=== PATIENT | male | born 1985 | race Hispanic/Latino ===

== ENCOUNTER 2020-09-26 11:58 | Emergency (ER) | payer OTHER ==
[~2020-09-26] VITALS: Ht 172.7 cm; Wt 71.1 kg
[2020-09-26 12:54] LABS: BASO % 0.5 % (0.0-1.0); EOS # 0.1 10^3/uL (0.0-0.5); EOS % 0.6 % (0.0-3.0); HEMOGLOBIN 16.1 g/dl (13.5-17.5); LYMPH # 2.4 10^3/uL (1.5-5.0); LYMPH % 27.3 % (24.0-44.0); MEAN CORPUSCULAR VOLUME 88.6 fl (80.0-96.0); MONO # 0.5 10^3/uL (0.0-0.8); MONO % 5.9 % (2.0-8.0); NEUTROPHILS # 5.7 10^3/uL (1.5-8.5); NEUTROPHILS % 65.5 % (36.0-66.0); PLATELET COUNT, AUTOMATED 255 10^3/uL (150-450); RED BLOOD COUNT 5.19 10^6/uL (4.30-6.10); WHITE BLOOD COUNT 8.6 10^3/uL (4.0-10.0)
[2020-09-26 13:18] LABS: ALBUMIN 4.6 GM/DL (3.2-5.2); BILIRUBIN,DIRECT 0.3 MG/DL (0.0-0.2); BILIRUBIN,TOTAL 1.6 MG/DL (0.2-1.0)
--- NOTE | 2020-09-26 13:44 | REP ---
INDICATION: right hip pain, possible fracture in Dec COMPARISON: None. TECHNIQUE: AP and frog-lateral views of the right hip FINDINGS: Calcifications superior to the femoral head suggest possible calcific tendinopathy versus vascular calcifications. The hip joint is otherwise intact and normal. No further degenerative changes are identified. No evidence for acute fracture or dislocation. IMPRESSION: As above. <Electronically signed by Wilfrid Franz > 09/26/20 0139
[2020-09-26 14:15] VITALS: BP 134/73
== END 2020-09-26 14:18 | disposition home or self-care (01) ==
LOC: M ED 11:58
DX: M25.551 Pain in right hip (principal); M65.251 Calcific tendinitis, right thigh